=== PATIENT | female | born 2000 | race Caucasian/White ===

== ENCOUNTER 2019-04-17 14:53 | Emergency (ER) | payer SELFPAY ==
[2019-04-17 15:11] VITALS: BP 136/78; PULSE 80; RESP 13; TEMP 36.3; O2SAT 100
--- NOTE | 2019-04-17 15:48 | ED.ABDPAIN ---
HPI - Abdominal Pain General Chief Complaint: Abdominal Pain Stated Complaint: abodomal pain shortness of breath Time Seen by Provider: 04/17/19 15:24 Source: patient Mode of arrival: ambulatory Limitations: no limitations History of Present Illness HPI narrative: Patient is a 19-year-old female here for evaluation of bilateral lower abdominal pain with right side being greater than left. She states that it started earlier today. Was a fairly sudden onset however has been worsening since approximately noon. She stated that this morning prior to the abdominal pain she did have nausea and vomiting. This has worsened since the abdominal pain is worsen. No bowel changes. She states that she finished her menstrual cycle last week. She is not currently on control. No prior abdominal surgeries. She states that the abdominal pain is caused her have shortness of breath. No fevers. No appetite. Last meal was this morning. Related Data Previous Rx's Medication Instructions Recorded docusate sodium [Colace] 100 mg PO BID PRN #30 cap 04/17/19 Allergies Allergy/AdvReac Type Severity Reaction Status Date / Time No Known Drug Allergies Allergy Verified 04/17/19 16:52 Review of Systems Constitutional Denies fever(s) Cardiovascular Denies chest pain and Reports dyspnea Respiratory Reports dyspnea Gastrointestinal Gastrointestinal: Reports abdominal pain, Denies change in bowel habits, Reports nausea and Reports vomiting Genitourinary Denies dysuria, Denies flank pain and Denies vaginal discharge Musculoskeletal Denies myalgias and Denies arthralgias Integumentary/Breasts Denies rash Neurologic Denies behavioral changes and Denies confusion Psychiatric Denies behavioral changes and Denies confusion Hematologic/Lymphatic Denies easy bleeding and Denies easy bruising Allergic/Immunologic Denies urticaria [facility] Medical History Patient denies medical problems (Acute) Social History Smoking Status: Current every day smoker Social History Smoking Status: Current every day smoker Exam Initial Vital Signs Initial Vital Signs: Vital Signs Temperature 97.3 F L 04/17/19 15:11 Pulse Rate 80 04/17/19 15:11 Respiratory Rate 13 04/17/19 15:11 Blood Pressure 136/78 04/17/19 15:11 Pulse Oximetry 100 04/17/19 15:11 Const General: cooperative, No comfortable (Uncomfortable) and No acute distress Orientation: alert, awake and oriented x3 HENMT Head: normal to inspection and normocephalic Resp Effort & Inspection: normal respiratory effort Auscultation: clear to auscultation bilaterally Cardio Rate: regular rate Rhythm: regular rhythm Pulses: radial pulses present GI Inspection: non-distended Palpation: soft, guarding and tender (Bilateral lower abdomen with rebound and guarding right lower quadrant) Back/Spine/Pelvis Back: No CVA tenderness Skin Lesions: no lesions Rashes: no rashes Neuro General: alert and awake Cognition: normal cognition Speech: speech normal Extrem General: capillary refill normal Psych Appearance: grossly normal and well kempt Scores GCS Thaddeus coma scale eye opening: Spontaneous Thaddeus coma scale verbal response: Orientated [place] coma scale motor response: Obey commands [place] coma scale total score: 15 Course Orders Ordered: ED Orders 04/17/19 15:49 CT abdomen pelvis w con Stat 04/17/19 16:04 Complete Blood Count AUTO DIFF Stat Test Serum,Qual Stat 04/17/19 16:30 Comprehensive Metabolic Panel Stat Lipase Stat 04/17/19 17:13 Urine Microscopic Stat 04/17/19 18:09 US abdomen limited Stat US pelvic complete Stat Discontinued Medications Sodium Chloride (Normal Saline 0.9%) 1,000 mls @ 1,000 mls/hr IV BOLUS ONE Stop: 04/17/19 16:47 Last Infusion: 04/17/19 17:14 Dose: 0 mls/hr Admin: 04/17/19 16:10 Dose: 1,000 mls/hr Morphine Sulfate (Morphine) 4 mg IV NOW ONE Stop: 04/17/19 15:49 Last Admin: 04/17/19 16:10 Dose: 4 mg Ondansetron HCl (Zofran) 4 mg IV NOW ONE Stop: 04/17/19 15:49 Last Admin: 04/17/19 16:10 Dose: 4 mg Vital Signs - 8 hr 04/17/19 15:11 04/17/19 16:45 04/17/19 18:45 Temperature 97.3 F L Pulse Rate 80 79 86 Respiratory Rate 13 Blood Pressure 136/78 Blood Pressure [Right Arm] 107/61 119/64 Pulse Oximetry 100 100 99 MDM - Abdominal Pain Lab Data Attestation: I reviewed the patient's lab results. Result diagrams: 04/17/19 16:04 04/17/19 16:30 Lab Results 04/17/19 04/17/19 04/17/19 Range/Units 16:04 16:04 16:30 WBC 16.8 H (4.5-11.0) X10^3/uL RBC 5.69 H (4.0-5.2) X10^6/uL Hgb 15.6 (12.0-16.0) g/dL Hct 47.5 H (36-46) % MCV 83.6 (80-100) fL MCH 27.4 (26-34) PG MCHC 32.8 (30-36) % RDW 13.1 (11.6-14.8) % Plt Count 305 (150-400) X10^3/uL Neut % (Auto) 86.5 H (50-75) % Lymph % (Auto) 9.0 L (25-40) % Hendricks % (Auto) 3.8 (3-14) % Eos % (Auto) 0.3 L (2-4) % Baso % (Auto) 0.4 (0-2) % Neut # (Auto) 85654 H (5666-2250) /uL Lymph # (Auto) 1500 (3162-8453) /uL Hendricks # (Auto) 600 (0-900) /uL Eos # (Auto) 0 (0-450) /uL Baso # (Auto) 100 (0-100) /uL Sodium 142 (137-145) mmol/L Potassium 4.3 (3.4-5.1) mmol/L Chloride 105 (98-107) mmol/L Carbon Dioxide 26 (22-32) mmol/L BUN 17 (7-17) mg/dL Creatinine 0.60 (0.52-1.04) mg/dL Estimated GFR > 60.0 (>60) mL/min BUN/Creatinine Ratio 28.3 H (6-22) Glucose 93 (70-100) mg/dL Calcium 9.6 (8.4-10.2) mg/dL Total Bilirubin 0.6 (0.2-1.3) mg/dL AST 36 (14-36) IU/L ALT 30 (9-52) IU/L Alkaline Phosphatase 113 (38-126) U/L Total Protein 7.8 (6.3-8.2) g/dL Albumin 4.5 (3.5-5.0) g/dL Globulin 3.3 (1.7-4.1) g/dL Albumin/Globulin Ratio 1.4 (1.0-2.8) Lipase 59 (23-300) U/L Serum , Qual Negative (Negative) Urine RBC (0-5/HPF) Urine WBC (0-5/HPF) Ur Squamous Epith Cells (0-5/HPF) Amorphous Sediment Urine Bacteria (None) Urine Mucus (Negative) Ur Culture Indicated? 04/17/19 Range/Units 17:13 WBC (4.5-11.0) X10^3/uL RBC (4.0-5.2) X10^6/uL Hgb (12.0-16.0) g/dL Hct (36-46) % MCV (80-100) fL MCH (26-34) PG MCHC (30-36) % RDW (11.6-14.8) % Plt Count (150-400) X10^3/uL Neut % (Auto) (50-75) % Lymph % (Auto) (25-40) % Hendricks % (Auto) (3-14) % Eos % (Auto) (2-4) % Baso % (Auto) (0-2) % Neut # (Auto) (6483-4592) /uL Lymph # (Auto) (4549-5997) /uL Hendricks # (Auto) (0-900) /uL Eos # (Auto) (0-450) /uL Baso # (Auto) (0-100) /uL Sodium (137-145) mmol/L Potassium (3.4-5.1) mmol/L Chloride (98-107) mmol/L Carbon Dioxide (22-32) mmol/L BUN (7-17) mg/dL Creatinine (0.52-1.04) mg/dL Estimated GFR (>60) mL/min BUN/Creatinine Ratio (6-22) Glucose (70-100) mg/dL Calcium (8.4-10.2) mg/dL Total Bilirubin (0.2-1.3) mg/dL AST (14-36) IU/L ALT (9-52) IU/L Alkaline Phosphatase (38-126) U/L Total Protein (6.3-8.2) g/dL Albumin (3.5-5.0) g/dL Globulin (1.7-4.1) g/dL Albumin/Globulin Ratio (1.0-2.8) Lipase (23-300) U/L Serum , Qual (Negative) Urine RBC None seen (0-5/HPF) Urine WBC 1-5/hpf (0-5/HPF) Ur Squamous Epith Cells 1-5 /hpf (0-5/HPF) Amorphous Sediment 1+ Urine Bacteria Occasional (0-1) (None) Urine Mucus 2+ H (Negative) Ur Culture Indicated? Cult not indicated Point of care testing: Point of Care Testing Test Results Negative Urine Dip Bedside Urine Glucose Negative Bedside Urine Bilirubin + 1 Bedside Urine Ketone +++ 80 Urine Specific [place] 1.020 Bedside Urine Occult Blood - Negative Bedside Urine pH 7.0 Bedside Urine Protein +/- 15 Bedside Urine Urobilinogen +/- 1mg Bedside Urine Nitrite - Negative Bedside Urine Leukocytes +/- [address] scan - abdomen: Radiologist's impression: [place] [address] CT Scan Report Signed Patient: Javon WynneMR#: [id number] : 2000Acct:[id number] Age/Sex: 19 / FDate of Service: 04/17/19 Loc: ED Accession Number: [id number] Procedure: CT abdomen pelvis w con Ordering Provider: El Steiner D.O. PROCEDURE: CT ABDOMEN PELVIS W CON INDICATIONS: Lower abdominal pain TECHNIQUE: After the administration of intravenous contrast, 5 mm thick sections acquired from the diaphragm to the symphysis. 5 mm coronal and sagittal reformats were acquired. For radiation dose reduction, the following was used: automated exposure control, adjustment of mA and/or kV according to patient size. COMPARISON: None. FINDINGS: Image quality: Excellent. ABDOMEN: Lung bases: Lung bases are clear. Heart size is normal. Solid organs: Liver is normal in size and enhancement. Gallbladder is normal. Biliary system is non dilated. Pancreas enhances normally. Spleen is normal in size and enhancement. No adrenal nodules. Kidneys demonstrate normal size and enhancement, without hydronephrosis. Peritoneum and bowel: Bowel loops demonstrate normal wall thickness and caliber. The appendix is not definitively identified. There is no inflammatory stranding in the right lower quadrant. No free fluid or air. Nodes and vessels: No retroperitoneal or mesenteric adenopathy by size criteria. Aorta and inferior vena cava are normal in size. Miscellaneous: No ventral hernias. PELVIS: Genitourinary: Bladder wall thickness is normal. Uterus and ovaries are unremarkable. There is no pathological free fluid in pelvis Miscellaneous: No inguinal hernias or adenopathy. Bones: No suspicious bony lesions. No vertebral body compression fractures. IMPRESSION: 1. No definitive inflammatory process is identified in abdomen or pelvis. Appendix is not visualized. Early acute appendicitis is difficult to exclude. 2. A large amount of stool in colon suggesting fecal impaction. The result was discussed with Dr. Steiner. Dictated by: Franky Patrick M.D. on 04/17/2019 at 17:41 Approved by: Franky Patrick M.D. on 04/17/2019 at 17:50 US - abdomen: Radiologist's impression: Non visualization of the appendix Pelvic ultrasound: Radiologist's impression: No acute abnormalities MDM Narrative Medical decision making narrative: Patient was evaluated in the emergency department by General surgery. By the time he evaluated her patient reported that her symptoms had greatly improved. She does have an elevated white count however has a nonvisualization of the appendix on the CT scan and on the ultrasound. Her ovaries are unremarkable. Patient is afebrile. She does have a large stool burden on the CT scan which could be the cause of her discomfort. The elevated white blood cell count could be explained by demargination secondary to all of the vomiting. She has no other signs of obstruction. Patient stated that she would like to go home. There is no indication for antibiotics. We did discuss a bowel regimen to include fiber supplement and stool softeners. We also discussed laxatives. We discussed return precautions and follow-up instructions. She expressed understanding and agreement with plan. Discharge Plan Departure Patient Disposition: Home Clinical Impression: Abdominal pain Qualifiers: Abdominal location: right lower quadrant Qualified Code(s): R10.31 - Right lower quadrant pain Instructions: DI for Abdominal Pain-Adult Activity Restrictions/Additional Instructions: I recommend you start on a fiber supplementation like we discussed. Take the stool softeners like we discussed. If you do not start having regular bowel movements you can start on a laxative such as MiraLax. Contact your primary provider for a follow-up. Return to the emergency department for any new symptoms, fevers, worsening abdominal pain, or any other concerning symptoms Prescriptions: New docusate sodium [Colace] 100 mg capsule 100 mg PO BID PRN (Reason: constipation) Qty: 30 RF: 0
[2019-04-17] MEDS: MORPHINE 4 MG/ML INJ IV (16:10)
[2019-04-17] MEDS: SODIUM CHLORIDE 0.9% 1,000 ML 1000 ML IV (16:10)
[2019-04-17] MEDS: ONDANSETRON 4 MG/2 ML INJ IV (16:10)
[2019-04-17 16:13] LABS: Add Manual Diff / Slide Review NO; Basophils Absolute Auto 100 /uL (0-100); Basophils Percent Auto 0.4 % (0-2); Eosinophils Absolute Auto 0 /uL (0-450); Eosinophils Percent Auto 0.3 % (2-4); Hematocrit 47.5 % (36-46); Hemoglobin 15.6 g/dL (12.0-16.0); Lymphocytes Absolute Auto 1500 /uL (1100-4500); Mean Corpuscular HGB Conc 32.8 % (30-36); Mean Corpuscular Hemoglobin 27.4 PG (26-34); Mean Corpuscular Volume 83.6 fL (80-100); Monocytes Absolute Auto 600 /uL (0-900); Monocytes Percent Auto 3.8 % (3-14); Neutrophils Absolute Auto 14600 /uL (1500-7000); Neutrophils Percent Auto 86.5 % (50-75); Platelet Count 305 X10^3/uL (150-400); Red Blood Cell Count 5.69 X10^6/uL (4.0-5.2); Red Cell Distribution Width 13.1 % (11.6-14.8); White Blood Cell Count 16.8 X10^3/uL (4.5-11.0)
[2019-04-17 16:45] VITALS: BP 107/61; PULSE 79; O2SAT 100
[2019-04-17 16:54] LABS: Alanine Aminotransferase 30 IU/L (9-52); Albumin 4.5 g/dL (3.5-5.0); Albumin Globulin Ratio 1.4 (1.0-2.8); Alkaline Phosphatase 113 U/L (38-126); Aspartate Aminotransferase 36 IU/L (14-36); BUN Creatinine Ratio 28.3 (6-22); Bilirubin Total 0.6 mg/dL (0.2-1.3); Blood Urea Nitrogen 17 mg/dL (7-17); Calcium 9.6 mg/dL (8.4-10.2); Carbon Dioxide 26 mmol/L (22-32); Chloride 105 mmol/L (98-107); Estimated Glomerular Filt Rate > 60.0 mL/min (>60); Globulin 3.3 g/dL (1.7-4.1); Glucose 93 mg/dL (70-100); HEMOLYSIS 16 (0-50); Lipase 59 U/L (23-300); Potassium 4.3 mmol/L (3.4-5.1); Sodium 142 mmol/L (137-145); Total Protein 7.8 g/dL (6.3-8.2)
[2019-04-17 17:17] LABS: RBC Urine None Seen (0-5/HPF)
[2019-04-17 17:25] LABS: Amorphous Sediment Urine 1+; Bacteria Urine Occasional (0-1); Culture Indicated Urine Cult Not Indicated; Mucus Urine 2+ (Negative); Squamous Epithelial Cell Urine 1-5 /HPF (0-5/HPF); WBC Urine 1-5/HPF (0-5/HPF)
[2019-04-17 17:27] LABS: Pregnancy Test Serum,Qual Negative (Negative)
--- NOTE | 2019-04-17 18:09 | DI.US.S_ITS ---
PROCEDURE: US PELVIC COMPLETE INDICATIONS: RIGHT PELVIC PAIN TECHNIQUE: Real-time scanning was performed of the pelvic organs, with image documentation. Additional endovaginal scanning was necessary due to incomplete visualization of the adnexal and endometrial structures by transabdominal scanning. COMPARISON: None. FINDINGS: Transabdominal scanning: Limited scanning through the kidneys shows no hydronephrosis. No pathologic free abdominal or pelvic fluid. The appendix was not visualized. Endovaginal scanning: Uterus: Uterus is normal in size at 6.6 x 2.8 x 4.5 cm. The endometrium measures 9 mm in combined thickness. Ovaries: Bilateral ovaries are normal in appearance. Right ovary measures 3.4 x 2.5 x 2.4 cm. Left ovary measures 3.7 x 2.6 x 2.1 cm. No suspicious adnexal or ovarian lesions. Vascular waveforms identified in the bilateral ovaries. IMPRESSION: No acute sonographic abnormalities identified in the pelvis. Dictated by: Chalino Rivero M.D. on 04/17/2019 at 20:20 Approved by: Chalino Rivero M.D. on 04/17/2019 at 20:24
[2019-04-17 18:45] VITALS: BP 119/64; PULSE 86; O2SAT 99
== END 2019-04-17 19:54 | disposition home or self-care (01) ==
PROVIDERS: Emergency Provider Emergency Medicine
DX: R10.31 Right lower quadrant pain (principal)
CPT/HCPCS: 36415; 36591; 74177; 76830; 76856; 80053; 81003; 81015; 81025; 83690; 84703; 85025; 96361; 96374; 96375; 99283; 99284; J2270; J2405; Q9967